=== PATIENT | male | born 1945 | race Caucasian/White ===

== ENCOUNTER → 2018-12-18 | Outpatient (CLI) | payer MEDICARE, BC | END | disposition home or self-care (01) | LOC: PCVCCLINIC 14:00 | PROVIDERS: ATTEND Internal Medicine Cardiovascular Disease | DX: I10 Essential (primary) hypertension (principal); R00.1 Bradycardia, unspecified; E78.5 Hyperlipidemia, unspecified; R94.31 Abnormal electrocardiogram [ECG] [EKG]; E11.9 Type 2 diabetes mellitus without complications; E78.00 Pure hypercholesterolemia, unspecified; Z87.891 Personal history of nicotine dependence; Z79.899 Other long term (current) drug therapy; Z79.84 Long term (current) use of oral hypoglycemic drugs | CPT/HCPCS: 36415; 80061; 93005; G0463 ==

== ENCOUNTER → 2019-01-01 | Outpatient (CLI) | payer MEDICARE, BC ==
[~2019-01-01] MED LIST: REGADENOSON 0.4 MG/5 ML DISP.SYRIN. IV ONE
--- NOTE | 2019-01-07 10:41 | PCVCIMAG ---
APPROVED REPORT Study performed: 01/01/2019 07:44:53 EXAM: Comprehensive 2D, Doppler, and color-flow Echocardiogram Patient Location: Echo lab Status: routine BSA: 2.15 HR: 41 bpmBP: 140/70 mmHg Rhythm: Bradycardia Other Information Study Quality: Adequate Risk Factors: Cardiac Risk Factors: HTN, Hyperlipidemia Indications Bradycardia COPD, Lung CA 2D Dimensions IVSd: 14.38 (7-11mm)LVOT Diam: 22.79 (18-24mm) LVDd: 48.94 mm PWd: 10.52 (7-11mm)Ascending Ao: 42.59 (22-36mm) LVDs: 28.22 (25-40mm) Left Atrium: 46.33 (27-40mm) Aortic Root: 32.06 mm LV Single Plane 4CH: 65.45 % LV Single Plane 2CH: 49.26 % Biplane EF: 57.9 % Volumes Left Atrial Volume (Systole) Single Plane 4CH: 69.34 mLSingle Plane 2CH: 90.14 mL LA ESV Index: 40.00 mL/m2 Aortic Valve AoV Peak Hans.: 2.14 m/s AO Peak Gr.: 18.31 mmHgLVOT Max P.51 mmHg LVOT Max V: 1.62 m/s JESSIE Vmax: 3.09 cm2 Mitral Valve E/A Ratio: 1.5 MV Decel. Time: 218.73 ms MV E Max Hans.: 1.18 m/s MV A Hans.: 0.80 m/s IVRT: 121.11 ms TDI E/Lateral E': 0.10E/Medial E': 16.86 Medial E' Hans.: 0.07 m/s Lateral E' Hans.: 12.00 m/s Pulmonary Valve PV Peak Gr.: 6.39 mmHg Pulmonary Vein P Vein S: 0.60 m/sP Vein A: 0.29 m/s P Vein D: 0.76 m/sP Vein A Dur.: 128.0 msec P Vein S/D Ratio: 0.79 Tricuspid Valve TR Peak Hans.: 3.32 m/s TR Peak Gr.: 44.17 mmHg Left Ventricle The left ventricle is normal size. There is normal LV segmental wall motion. There is normal left ventricular wall thickness. Left ventricular systolic function is normal. The left ventricular ejection fraction is within the normal range. LVEF is 55-60%. Grade I - abnormal relaxation pattern. Right Ventricle The right ventricle is normal size. The right ventricular systolic function is normal. Atria The left atrium size is normal. The right atrium size is normal. Aortic Valve The aortic valve is normal in structure. No aortic regurgitation is present. There is no aortic valvular stenosis. Mitral Valve The mitral valve is normal in structure. There is no mitral valve regurgitation noted. No evidence of mitral valve stenosis. Tricuspid Valve The tricuspid valve is normal in structure. Trace tricuspid regurgitation. Pulmonary artery pressure is 51mmHg. Pulmonic Valve The pulmonary valve is normal in structure. There is no pulmonic valvular regurgitation. Great Vessels The aortic root is normal in size. The ascending aorta is mildly dilated measuring 4.3cm. IVC is normal in size and collapses >50% with inspiration. Pericardium There is no pericardial effusion. <Conclusion> The left ventricle is normal size. LVEF is 55-60%. Grade I - abnormal relaxation pattern. The right ventricle is normal size. The left atrium size is normal. The aortic valve is normal in structure. There is no mitral valve regurgitation noted. Trace tricuspid regurgitation. Pulmonary artery pressure is 51mmHg. The aortic root is normal in size. The ascending aorta is mildly dilated measuring 4.3cm. There is no pericardial effusion.
--- NOTE | 2019-01-07 10:44 | PCVCIMAG ---
APPROVED REPORT Imaging Protocol: Rest Tc-99m/Stress Tc-99m 1 day Study performed: 01/01/2019 09:23:49 Indication: Bradycardia, Dyspnea Patient Location: Out-Patient Stress Nurse: Geno Carballo RN [place] Tech:Estephania Amanda [facility] Ht: 5 ft 11 in Wt: 205 lbs BSA: 2.13 m2 HR: 48 bpm BP: 149/72 mmHg BMI: 28.5 Rhythm: Sinus Bradycardia, LBBB Medical History Medical History: HTN, Hyperlipidemia, COPD, Diabetes, Former Smoker Medications: Amlodipine, Atorvastatin, Catapres, Lisinopril, Bystolic Allergies: No known drug allergies Cardiac Risk Factors: Age Pretest Chest Pain Characteristics: No chest pain Exercise History: Physically active Meds Held (24 hrs): Bystolic Resting Data Rest SPECT myocardial perfusion imaging was performed in supine position 45 minutes following the intravenous injection of 10.2 mCi of Tc-99m Sestamibi. Time of rest injection: 0845 Date: 01/01/2019 Administration Route: IV Administration Site: Right Arm Pharmacologic Stress Pharmacologic stress test was performed by injecting Regadenoson 0.4 mg IV push over 10-15 seconds immediately followed by the intravenous injection of 33.8 mCi of Tc-99m Sestamibi. Time of stress injection: 1030 Date: 01/01/2019 Administration Route: IV Administration Site: Right Arm Gated Stress SPECT was performed 45 minutes after stress injection. The images were gated to evaluate regional wall motion and calculate left ventricular ejection fraction. Comments Prior Nuclear Stress Test 2013: Nonischemic Stress Test Details Stress Test: Pharmacologic stress testing performed using 0.4 mg of regadenoson per 5 mL given IV over 10 seconds. Reason for pharmacologic stress test: physical limitation, COPD. HRMax Heart Rate (APMHR): 149 bpm Resting HR: 48 bpmTarget HR (85% APMHR): 126 bpm Max HR Achieved: 54 bpm % of APMHR: 36 Recovery HR: 51 bpm BP Resting BP: 149/72 mmHg Max BP: 145/80 mmHg Recovery BP: 150/78 mmHg ECG Resting ECG: Sinus Bradycardia, LBBB Stress ECG: Sinus Bradycardia, LBBB Arrhythmia: None Recovery ECG: Sinus Bradycardia, LBBB Clinical Reason for Termination: Completed protocol Stress Symptoms: Abdominal discomfort Exercise duration: 0 min 55 sec Symptoms resolved during recovery. Stress ECG Conclusion ECG: Non-ischemic Study Quality Study: Good Study Data Post stress, the left ventricular ejection was 65%.. SSS: 5 SRS: 5 SDS: 2 TID = 0.83. Perfusion No evidence of stress induced ischemia or prior myocardial infarction. Wall Motion Normal left ventricular size and function with no regional wall motion abnormalities. Nuclear Conclusion No evidence of stress induced ischemia or prior myocardial infarction. Normal left ventricular size and function with no regional wall motion abnormalities. Post stress, the left ventricular ejection was 65%. No prior study available for comparison. Interpreted by: Diaz Almendarez MD Electronically Approved: 01/01/2019 13:34:33 <Conclusion> ECG: Non-ischemic
== END | disposition home or self-care (01) ==
LOC: PCVCIMAG 07:24
PROVIDERS: ATTEND Internal Medicine Cardiovascular Disease
DX: I44.7 Left bundle-branch block, unspecified (principal); R00.1 Bradycardia, unspecified; I10 Essential (primary) hypertension; R06.00 Dyspnea, unspecified; C34.90 Malignant neoplasm of unspecified part of unspecified bronchus or lung
CPT/HCPCS: 78452; 93017; 93306; A9500; J2785